=== PATIENT | male | born 1985 | race Hispanic/Latino ===

== ENCOUNTER 2017-11-18 00:37 | Emergency (ER) | payer SELFPAY ==
[2017-11-18 00:44] VITALS: TEMP 97.9
--- NOTE | 2017-11-18 02:07 | ED PDOC ---
HPI: Psych/Substance Abuse Time Seen by Provider: 11/18/17 01:02 Chief Complaint (Nursing): Substance Abuse Chief Complaint (Provider): Substance Abuse History Per: Patient History/Exam Limitations: no limitations Onset/Duration Of Symptoms: Hrs Current Symptoms Are (Timing): Better Additional History Per: EMS Additional Complaint(s): 32 year old male presents to the emergency department via EMS after he states he developed left sided chest pain that radiated to his left shoulder after smoking crack cocaine earlier today. Patient reports that his symptoms lasted a few minutes, but resolved spontaneously. Denies shortness of breath, coughing, hemoptysis, and recent trauma. Currently, he denies any chest pain, but does say he is feeling anxious. Patient also admits that he has been using crack cocaine for the past three days while also consuming alcohol. PMD: none provided Past Medical History Reviewed: Historical Data, Nursing Documentation, Vital Signs Vital Signs: Last Vital Signs Temp 97.9 F 11/18/17 00:40 Pulse 121 H 11/18/17 01:09 Resp 18 11/18/17 01:09 BP 157/101 H 11/18/17 01:09 Pulse Ox 97 11/18/17 01:09 - Medical History PMH: Anxiety - Surgical History Surgical History: No Surg Hx - Family History Family History: States: Unknown Family Hx - Social History Current smoker - smoking cessation education provided: No Alcohol: Social Drugs: Cocaine (crack) - Allergies Allergies/Adverse Reactions: Allergies Allergy/AdvReac Type Severity Reaction Status Date / Time No Known Allergies Allergy Verified 11/18/17 00:44 Review of Systems ROS Statement: Except As Marked, All Systems Reviewed And Found Negative Constitutional: Negative for: Fever Cardiovascular: Positive for: Chest Pain (left sided, going up into left shoulder, lasting a few minutes but resolved spontaneously; none reported currently) Respiratory: Negative for: Cough, Shortness of Breath, Hemoptysis Musculoskeletal: Positive for: Shoulder Pain (left sided; resolved now) Psych: Positive for: Anxiety Physical Exam - Reviewed Nursing Documentation Reviewed: Yes Vital Signs Reviewed: Yes - Physical Exam Appears: Positive for: Non-toxic, No Acute Distress Head Exam: Positive for: ATRAUMATIC, NORMOCEPHALIC Skin: Positive for: Normal Color, Warm, Dry Eye Exam: Positive for: Normal appearance ENT: Positive for: Normal ENT Inspection Neck: Positive for: Normal, Painless ROM, Supple Cardiovascular/Chest: Positive for: Tachycardia Respiratory: Positive for: Normal Breath Sounds. Negative for: Accessory Muscle Use, Respiratory Distress Gastrointestinal/Abdominal: Positive for: Normal Exam, Soft. Negative for: Tenderness Back: Positive for: Normal Inspection. Negative for: L CVA Tenderness, R CVA Tenderness Extremity: Positive for: Normal ROM Neurologic/Psych: Positive for: Alert, Oriented, Mood/Affect (agitated, but directable) - Laboratory Results Result Diagrams: 11/18/17 01:55 11/18/17 01:55 - ECG O2 Sat by Pulse Oximetry: 97 (RA) Pulse Ox Interpretation: Normal Medical Decision Making Medical Decision Making: Initial Impression: drug abuse, chest pain Time: 1:23 Initial Plan: --EKG --CBC with differential --D Dimer --Chest XR --Aspirin 324mg PO --Urinalysis --Alcohol serum --CMP --Drug Screen --Trop I 1:40 While waiting for blood work to be done, patient's agitation escalated and he began to say he wants to leave the hospital and kill someone, refusing to go back into his room. Ativan and haldol ordered. Patient will be restrained. Scribe Attestation: Documented by Michelle Moore, acting as a scribe for Martín Sarmiento PA-C. Provider Scribe Attestation: All medical entries made by the Scribe were at my direction and personally dictated by me. I have reviewed the chart and agree that the record accurately reflects my personal performance of the history, physical exam, medical decision making, and the department course for this patient. I have also personally directed, reviewed, and agree with the discharge instructions and disposition. Disposition - Clinical Impression Clinical Impression: Chest pain, Cocaine use - Patient ED Disposition Is Patient to be Admitted: Transfer of Care (Dr. Jacobson continued care at the end of my shift.) - Disposition Disposition Time: 06:00 Condition: STABLE Forms: [employer] ([place]ish)
[2017-11-18 02:13] LABS: BASO # 0.1 K/uL (0.0-0.2); BASO % 0.8 % (0.0-2.0); EOS % 0.1 % (0.0-4.0); HEMOGLOBIN 15.7 g/dL (12.0-18.0); LYMPH # 1.4 K/uL (1.0-4.3); MEAN CORPUSCULAR HEMOGLOBIN 29.3 pg (27.0-31.0); MEAN CORPUSCULAR HGB CONC 33.7 g/dL (33.0-37.0); MEAN PLATELET VOLUME 7.6 fl (7.2-11.7); MONO # 0.9 K/uL (0.0-0.8); MONO % 14.4 % (0.0-10.0); NEUT # 3.9 K/uL (1.8-7.0); NEUT % 61.7 % (50.0-75.0); NRBC % 0.1 % (0.0-0.0); RBC 5.34 Mil/uL (4.40-5.90); RED CELL DISTRIBUTION WIDTH 13.8 % (11.5-14.5); WHITE BLOOD COUNT 6.3 K/uL (4.8-10.8)
[2017-11-18 02:14] LABS: ALB/GLOB RATIO 1.3 (1.0-2.1)
[2017-11-18 02:40] LABS: ALT/SGPT 53 U/L (21-72); AST/SGOT 45 U/L (17-59); BLOOD UREA NITROGEN 11 mg/dl (9-20); CALCIUM 9.7 mg/dL (8.4-10.2); GFR AFRICAN-AMERICAN > 60; GFR NON-AFRICAN AMERICAN > 60
[2017-11-18 09:07] VITALS: RESP 14
--- NOTE | 2017-11-18 09:14 | ED PDOC ---
- Laboratory Results Result Diagrams: 11/18/17 01:55 11/18/17 01:55 - ECG O2 Sat by Pulse Oximetry: 99 - Progress Re-evaluation Time: 09:12 Condition: Improved (Denies chest pain or palpitations. denies SI/HI. Does not wish to remain for obs, Aware of risks assoc with cocaine use including heart attack arrhythmia and stroke. Awake alert oriented x 3.) Disposition - Clinical Impression Clinical Impression: Chest pain, Cocaine use - POA Present On Arrival: None - Disposition Referrals: [facility] [Outside] Disposition: Routine/Home Disposition Time: 09:14 Condition: FAIR Instructions: Cocaine Use Disorder Forms: [facility] ([place]er)
[2017-11-18 09:49] VITALS: BP 122/79; PULSE 81; O2SAT 100
--- NOTE | 2017-11-18 10:00 | RAD ---
HISTORY: chest pain COMPARISON: No prior. FINDINGS: LUNGS: No active pulmonary disease. PLEURA: No significant pleural effusion identified, no pneumothorax apparent. CARDIOVASCULAR: Normal. OSSEOUS STRUCTURES: No significant abnormalities. VISUALIZED UPPER ABDOMEN: Normal. OTHER FINDINGS: None. IMPRESSION: No acute cardiopulmonary disease appreciated.
--- NOTE | 2017-11-18 14:42 | CARD ---
APPROVED REPORT EKG Measurement Heart [id number] <Conclusion> Sinus tachycardia Possible Left atrial enlargement Left ventricular hypertrophy with repolarization abnormality Abnormal ECG
== END 2017-11-18 09:49 | disposition home or self-care (01) ==
LOC: H.ER 00:37
DX: F14.10 Cocaine abuse, uncomplicated (principal); R07.9 Chest pain, unspecified; Z79.82 Long term (current) use of aspirin
CPT/HCPCS: 71045; 80053; 82948; 84484; 85025; 85378; 93005; 96372; 99285; G0480; J1630; J2060